=== PATIENT | female | born 1995 | race Caucasian/White ===

== ENCOUNTER 2019-01-27 16:27 | Emergency (ER) | payer MEDICAID ==
[~2019-01-27] VITALS: Ht 152.4 cm; Wt 43.1 kg
[2019-01-27 16:31] VITALS: BP 112/55
[2019-01-27] MEDS ORDERED: LIDOCAINE 0.5%-EPI 1:200,000 50 ML VIAL ONE (16:40)
[2019-01-27] MEDS ORDERED: LIDOCAINE 1%-EPI 1:100,000 20 ML VIAL ONE (16:41)
--- NOTE | 2019-01-27 16:49 | NUR ---
DR TONY AT BEDSIDE FOR LAC REPAIR.
[2019-01-27] MEDS ORDERED: TDAP [DIPH/PERTUSSIS/TET] 0.5 ML VIAL IM ONE ×2 (17:00→17:21)
--- NOTE | 2019-01-27 17:28 | NUR ---
Patient discharged to home in stable condition. Written and verbal after care instructions given. Patient verbalizes understanding of instruction. Pt ambulatory with a steady gait
== END 2019-01-27 17:30 | disposition home or self-care (01) ==
LOC: ER 16:30
DX: S41.011A Laceration without foreign body of right shoulder, initial encounter (principal); S30.0XXA Contusion of lower back and pelvis, initial encounter; S80.211A Abrasion, right knee, initial encounter; J45.909 Unspecified asthma, uncomplicated; W05.1XXA Fall from non-moving nonmotorized scooter, initial encounter; Y93.89 Activity, other specified; Y92.89 Other specified places as the place of occurrence of the external cause; Y99.8 Other external cause status
CPT/HCPCS: 12002; 90471; 90715; 99283; A6403; J3490

== ENCOUNTER 2019-02-09 00:03 | Emergency (ER) | payer MEDICAID ==
[~2019-02-09] VITALS: Ht 154.9 cm; Wt 47.2 kg
[2019-02-09 00:19] VITALS: BP 133/88
[2019-02-09] MEDS ORDERED: GUAIFENESIN/D-METHORPHAN HB 5 ML UDC ONE (00:54)
[2019-02-09] MEDS ORDERED: GUAIFENESIN/D-METHORPHAN HB 5 ML UDC PO ONE (01:00)
== END 2019-02-09 03:32 | disposition home or self-care (01) ==
LOC: ER 00:15
DX: S41.111D Laceration without foreign body of right upper arm, subsequent encounter (principal); J06.9 Acute upper respiratory infection, unspecified; J45.909 Unspecified asthma, uncomplicated; X58.XXXD Exposure to other specified factors, subsequent encounter
CPT/HCPCS: 71045; 99283; A6402

== ENCOUNTER 2024-09-13 05:06 | Emergency (ER) | payer MEDICAID, OTHER ==
[~2024-09-13] VITALS: Ht 152.4 cm; Wt 68.0 kg
[2024-09-13 06:03] VITALS: BP 129/72; TEMP 98.2
[2024-09-13] MEDS ORDERED: SULF1TAB48 PO (06:22)
[2024-09-13 06:31] VITALS: O2SAT 98
== END 2024-09-13 06:32 | disposition home or self-care (01) ==
LOC: ER 05:14
DX: L03.213 Periorbital cellulitis (principal); J45.909 Unspecified asthma, uncomplicated; H57.12 Ocular pain, left eye; H57.89 Other specified disorders of eye and adnexa; R22.0 Localized swelling, mass and lump, head